=== PATIENT | female | born 1950 | race Caucasian/White ===

== ENCOUNTER 2018-06-26 09:43 | Outpatient (CLI) | payer BC, MEDICARE, OTHER ==
[2018-06-26 11:01] LABS: #Eosinphils 0.1 thou/uL (0.0-0.7); #Lymphocytes 3.3 thou/uL (1.20-3.40); #Monocytes 0.5 thou/uL (0.11-0.59); #Neutrophils 4.8 thou/uL (1.40-6.50); %Basophils 0.3 % (0.0-1.0); %Eosinophils 1.3 % (0.0-10.0); %Lymphocytes 37.7 % (21.0-51.0); %Monocytes 5.3 % (0.0-10.0); %Neutrophils 55.4 % (42.0-75.0); Hemoglobin 13.8 g/dL (12.0-16.0); Mean Corpuscular HGB CONC 34.7 g/dL (32.0-36.0); Mean Corpuscular Hemoglobin 30.8 pg (27.0-31.0); Mean Corpuscular Volume 88.6 fL (78.0-98.0); Mean Platelet Volume 7.1 fL (7.4-10.4); Platelet Count 218 thou/uL (130-400); RBC Distribution Width 12.9 % (11.5-14.5); Red Blood Cell (RBC) Count 4.48 mill/uL (4.20-5.40); White Blood Cell (WBC) Count 8.7 thou/uL (4.8-10.8)
[2018-06-26 11:08] LABS: Hemoglobin A1c 9.2 % (4.0-6.0)
[2018-06-26 11:34] LABS: Anion Gap 15 mmol/L (10-20); BUN (Urea Nitrogen) 11 mg/dL (9.8-20.1); Calc. Creatinine Clearance 0 mL/min (70-130); Calcium 10.2 mg/dL (7.8-10.44); Carbon Dioxide 24 mmol/L (23-31); Chloride 103 mmol/L (98-107); Estimated GFR-MDRD 66; Glucose 150 mg/dL (80-115); Potassium 4.2 mmol/L (3.5-5.1); Sodium 138 mmol/L (136-145)
== END 2018-06-26 09:44 | disposition home or self-care (01) ==
LOC: LABBT 09:43
PROVIDERS: ATTEND Surgery
DX: Z01.818 Encounter for other preprocedural examination (principal); C18.9 Malignant neoplasm of colon, unspecified; K63.89 Other specified diseases of intestine
CPT/HCPCS: 80048; 83036; 85025; 93005; 93010

== ENCOUNTER 2018-06-26 10:15 | Inpatient (IN) | payer BC, MEDICARE, OTHER ==
[2018-06-26 09:56] VITALS: BMI 31.0
[2018-06-30] MEDS ORDERED: Midazolam HCl 2 mg/2 ml Vial ONE (09:23)
[2018-06-30] MEDS ORDERED: Fentanyl 100 MCG/2 ML VIAL ONE ×5 (09:23→18:44)
[2018-06-30] MEDS ORDERED: cefOXitin 2 GM VIAL ONE ×2 (09:42→14:18)
[2018-06-30] MEDS ORDERED: Sodium Chloride 0.9% 100 ML ONE (09:42)
[2018-06-30] MEDS ORDERED: Lidocaine 1% (PF) 30 ML VIAL ONE (09:53)
[2018-06-30] MEDS ORDERED: Bupivacaine/Epinephrine 0.25% 30 ML VIAL ONE (09:59)
[2018-06-30] MEDS ORDERED: Famotidine/PF 20 mg/2ml Vial ONE (10:01)
[2018-06-30] MEDS ORDERED: Albumin 5% 0 ML ONE (10:01)
[2018-06-30] MEDS ORDERED: HYDROmorphone 2 MG/ML VIAL ONE (10:01)
[2018-06-30] MEDS ORDERED: Fentanyl 250 MCG/5 ML VIAL ONE (10:01)
[2018-06-30] MEDS ORDERED: Phenylephrine HCL 10 MG/ML VIAL ONE (12:23)
[2018-06-30] MEDS ORDERED: Bupivacaine HCl 0.5%/Epinephrine 1:200,000/PF 30 ml Vial ONE (12:59)
[2018-06-30] MEDS ORDERED: PHENYLEPHRINE-NS 100 MCG/ML 10 ML SYRINGE ONE (13:29)
[2018-06-30] MEDS ORDERED: Ketorolac Tromethamine 30 MG/ML VIAL ONE (13:29)
[2018-06-30] MEDS ORDERED: Dexamethasone 20 MG/5 ML VIAL ONE (13:29)
[2018-06-30] MEDS ORDERED: Glycopyrrolate 0.2 MG/ML 5 ML SYRINGE ONE (13:29)
[2018-06-30] MEDS ORDERED: Lidocaine 1% PF 5 ML VIAL ONE (13:29)
[2018-06-30] MEDS ORDERED: PROPOFOL 200 MG/20 ML VIAL ONE (13:29)
[2018-06-30] MEDS ORDERED: Ondansetron HCl/PF 4 MG/2 ML Vial ONE (13:29)
[2018-06-30] MEDS ORDERED: Promethazine HCl 25 MG/ML VIAL SLOW IVP PRN (14:14)
[2018-06-30] MEDS ORDERED: Ondansetron HCl/PF 4 MG/2 ML Vial IVP PRN ×2 (14:14→16:55)
[2018-06-30] MEDS ORDERED: Meperidine HCl/PF 25 MG/ML VIAL SLOW IVP PRN (14:14)
[2018-06-30] MEDS ORDERED: Promethazine HCl 25 MG/ML VIAL IM PRN ×2 (14:14→16:55)
[2018-06-30] MEDS ORDERED: Fentanyl 100 MCG/2 ML VIAL SLOW IVP PRN ×2 (16:55)
[2018-06-30] MEDS ORDERED: hydrALAZINE 20 MG/ML VIAL SLOW IVP PRN (16:55)
[2018-06-30] MEDS ORDERED: Acetaminophen 1,000 MG in Premix Bag 1 BAG IVPB SCH (18:00)
[2018-06-30] MEDS: Sodium Chloride 0.9% 1,000 ML IV SCH (19:25)
[2018-06-30] MEDS: Enoxaparin Sodium 40 MG/0.4 ML SYRINGE SC SCH (21:09)
[2018-06-30] MEDS: Famotidine/PF 20 mg/2ml Vial SLOW IVP SCH (21:09)
[2018-06-30] MEDS: Famotidine 20 MG TAB PO SCH (21:09)
[2018-06-30] MEDS: Acetaminophen 1,000 MG in Premix Bag 1 BAG IVPB SCH (21:09)
[2018-06-30] MEDS: cefOXitin 2 GM in Sodium Chloride 0.9% 100 ML IVPB SCH (21:50)
[2018-06-30] MEDS: Insulin Regular 300 UNITS/3 ML VIAL SC PRN (21:50)
--- NOTE | 2018-06-30 22:32 | OP ---
DATE OF PROCEDURE: 06/30/2018 PREOPERATIVE DIAGNOSES: 1. Sigmoid adenocarcinoma. 2. Unresectable polyp, ascending colon and hepatic flexure. POSTOPERATIVE DIAGNOSES: 1. Sigmoid adenocarcinoma. 2. Unresectable polyp, ascending colon and hepatic flexure. PROCEDURE: Open subtotal colectomy with ileal rectosigmoid junction anastomosis. SURGEON: Nilesh Tran M.D. ANESTHESIA: General. ESTIMATED BLOOD LOSS: 100 mL COMPLICATIONS: None. FINDINGS: The distal marked lesion and known adenocarcinoma was up in the mid sigmoid. The second l esion that was an unresectable benign polyp was at the hepatic flexure. Due the patient's anatomy, a double anastomosis was not performed. TECHNIQUE: The patient underwent mechanical and antibiotic bowel prep in the morning of surgery, but she had tap blocks, taken to the operating room and placed supine on the table. After general anest hetic was obtained, her Collins is placed and her abdomen is prepped and draped in a sterile fashion. She had been placed in lithotomy position. Left subcostal 5-mm Optiview trocar was placed on High-fl ow pneumoperitoneum was obtained. Right lower quadrant 5-mm port and 12-mm port placed under direct visualization. The patient was placed in Trendelenburg position. Her omentum was stuck down into th e pelvis with dense adhesions and her small bowel was not able to be brought out of the pelvis to exp ose the sigmoid colon mesentery, so a midline incision was made and a Bookwalter placed and the dense adhesions in the pelvis were taken down using cautery and LigaSure. The left ureter was found and e xcluded from the dissection. The inferior mesenteric artery was taken near its base. The mesentery was mobilized using LigaSure all the way to the distal sigmoid colon. At this location, GI 75 staple r was fired across the colon. The blue dyed area was much more proximal to this. The left colon was mobilized along the white line of Toldt. Hepatic flexure was mobilized in the usual fashion. The r ight colon, hepatic flexure was mobilized in the usual fashion as well. The lesion in the ascending colon turned out to be at just past the hepatic flexure. The patient had significant tortuosity of h er ascending colon and of her sigmoid colon, but a fairly short transverse colon. Because of this an d the likelihood of needing her distal transverse colon to be down at the anastomosis, decision was m eric to perform a subtotal colectomy, ileocolic vessels were taken low using Velma clamp and silk ties . The middle colic vessels taken in the same. The duodenum was excluded from the dissection. JOVON-7 5 stapler required fired across the terminal ileum. Small bowel mesentery was taken down to the alre jax divided mesentery. The specimen was opened to reveal what looked like an area of polypectomy and sent to pathology for final diagnosis. Small bowel was able to be laid down in the pelvis over the rectosigmoid junction in an antimesenteric fashion. Enterotomy was made on the end of each, and an E ndo-JOVON 75 stapler was used to form the anastomosis. The common enterotomy was closed in two layers using Vicryl suture. No evidence of ischemia to the staple lines. The abdomen is irrigated using wa rm sterile solution. There was no bleeding. The surgeon and assistants all changed gloves. Midline fascia closed using #1 PDS from the top and the bottom and tied in the middle. Subcutaneous tissues were irrigated copiously using warm sterile solution. Midline incision using 3-0 Vicryl, 4-0 Monocr yl, and Dermabond. The other incisions are closed using 4-0 Monocryl and Dermabond. The patient en route to recovery in stable condition. All instrument counts, needle counts, lap counts are correct.
[2018-07-01] MEDS: Ketorolac Tromethamine 30 MG/ML VIAL IVP PRN ×3 (00:55→20:59)
[2018-07-01] MEDS: Acetaminophen 1,000 MG in Premix Bag 1 BAG IVPB SCH ×3 (02:59→14:31)
[2018-07-01] MEDS: cefOXitin 2 GM in Sodium Chloride 0.9% 100 ML IVPB SCH (05:40)
[2018-07-01] MEDS: Levothyroxine Sodium 125 MCG TAB PO SCH (05:40)
[2018-07-01] MEDS: Insulin Regular 300 UNITS/3 ML VIAL SC PRN ×4 (05:50→21:04)
[2018-07-01 05:56] LABS: Anion Gap 13 mmol/L (10-20); BUN (Urea Nitrogen) 10 mg/dL (9.8-20.1); Calc. Creatinine Clearance 93 mL/min (70-130); Calcium 8.1 mg/dL (7.8-10.44); Carbon Dioxide 22 mmol/L (23-31); Chloride 107 mmol/L (98-107); Estimated GFR-MDRD 69; Glucose 204 mg/dL (80-115); Potassium 3.8 mmol/L (3.5-5.1); Sodium 138 mmol/L (136-145)
[2018-07-01 06:23] LABS: Hemoglobin 12.8 g/dL (12.0-16.0); Mean Corpuscular HGB CONC 33.8 g/dL (32.0-36.0); Mean Corpuscular Hemoglobin 30.5 pg (27.0-31.0); Mean Corpuscular Volume 90.4 fL (78.0-98.0); Mean Platelet Volume 7.9 fL (7.4-10.4); Platelet Count 208 thou/uL (130-400); RBC Distribution Width 13.1 % (11.5-14.5); Red Blood Cell (RBC) Count 4.19 mill/uL (4.20-5.40); White Blood Cell (WBC) Count 10.4 thou/uL (4.8-10.8)
[2018-07-01 06:46] LABS: Band 50 % (5-11); Lymphocytes 12 % (21-51); MDiff Complete? YES; Monocytes 2 % (0-10); Neutrophil 36 % (42-75); Reflex for Review?? YES
[2018-07-01] MEDS: Sodium Chloride 0.9% 1,000 ML IV SCH (07:50)
[2018-07-01] MEDS ORDERED: Sodium Chloride 0.9% 1,000 ML IV SCH (07:55)
--- NOTE | 2018-07-01 07:56 | PDOC.GSPN ---
Surgery Progress Note: Subj - Subjective Narrative: No nausea, pain controlled Surgery Progress Note: Obj - Vital signs Vital signs: Vital Signs - Most Recent Temp Pulse Resp BP Pulse Ox 98.5 F 88 16 110/67 95 07/01/18 07:21 07/01/18 07:21 07/01/18 07:21 07/01/18 04:00 07/01/18 07:21 - Physical Exam General: no distress Cardiovascular: regular rate and rhythm Respiratory: clear to auscultation Abdomen: soft, non tender, nondistended Surgery Progress Note: Results - Labs Result Diagrams: 07/01/18 04:46 07/01/18 04:46 Lab results: Laboratory Results - last 24 hr 06/30/18 07/01/18 07/01/18 21:37 04:46 04:46 WBC 10.4 RBC 4.19 L Hgb 12.8 Hct 37.8 MCV 90.4 MCH 30.5 MCHC 33.8 RDW 13.1 Plt Count 208 MPV 7.9 Neutrophils % (Manual) 36 L Band Neuts % (Manual) 50 H Lymphocytes % (Manual) 12 L Monocytes % (Manual) 2 Neutrophils # Not Reportable Lymphocytes # Not Reportable Sodium 138 Potassium 3.8 Chloride 107 Carbon Dioxide 22 L Anion Gap 13 BUN 10 Creatinine 0.83 Estimated GFR (MDRD) 69 Glucose 204 H POC Glucose 260 H Calcium 8.1 07/01/18 05:49 WBC RBC Hgb Hct MCV MCH MCHC RDW Plt Count MPV Neutrophils % (Manual) Band Neuts % (Manual) Lymphocytes % (Manual) Monocytes % (Manual) Neutrophils # Lymphocytes # Sodium Potassium Chloride Carbon Dioxide Anion Gap BUN Creatinine Estimated GFR (MDRD) Glucose POC Glucose 195 H Calcium Surgery Progress Note: A/P - Problem (1) Colonic mass Current Visit: Yes Code(s): K63.9 - DISEASE OF INTESTINE, UNSPECIFIED Status : Acute - Plan Plan: POD 1 -full liquids if no nausea at dinner -ambulate
[2018-07-01] MEDS: Famotidine/PF 20 mg/2ml Vial SLOW IVP SCH ×2 (08:22→21:00)
[2018-07-01] MEDS: Famotidine 20 MG TAB PO SCH ×2 (08:22→20:59)
[2018-07-01] MEDS: Enoxaparin Sodium 40 MG/0.4 ML SYRINGE SC SCH (20:59)
[2018-07-02] MEDS ORDERED: Acetaminophen 325 MG TAB PO SCH (04:15)
[2018-07-02] MEDS: Levothyroxine Sodium 125 MCG TAB PO SCH (05:54)
[2018-07-02] MEDS: Insulin Regular 300 UNITS/3 ML VIAL SC PRN (06:02)
[2018-07-02] MEDS: Famotidine/PF 20 mg/2ml Vial SLOW IVP SCH (08:06)
[2018-07-02] MEDS: Famotidine 20 MG TAB PO SCH (08:10)
[2018-07-02] MEDS ORDERED: HYDROcodone/Acetaminophen 10/325 mg Tablet PO PRN ×2 (09:09)
[2018-07-02 09:42] LABS: #Lymphocytes 1.9 thou/uL (1.20-3.40); #Monocytes 0.3 thou/uL (0.11-0.59); %Basophils 0.2 % (0.0-1.0); %Eosinophils 0.2 % (0.0-10.0); %Lymphocytes 17.1 % (21.0-51.0); %Neutrophils 79.5 % (42.0-75.0); Hemoglobin 11.4 g/dL (12.0-16.0); Mean Corpuscular HGB CONC 34.4 g/dL (32.0-36.0); Mean Corpuscular Hemoglobin 31.2 pg (27.0-31.0); Mean Corpuscular Volume 90.6 fL (78.0-98.0); Mean Platelet Volume 7.3 fL (7.4-10.4); Platelet Count 168 thou/uL (130-400); RBC Distribution Width 13.2 % (11.5-14.5); Red Blood Cell (RBC) Count 3.66 mill/uL (4.20-5.40); White Blood Cell (WBC) Count 11.3 thou/uL (4.8-10.8)
[2018-07-02 10:06] LABS: Anion Gap 12 mmol/L (10-20); BUN (Urea Nitrogen) 10 mg/dL (9.8-20.1); Calc. Creatinine Clearance 102 mL/min (70-130); Calcium 8.5 mg/dL (7.8-10.44); Carbon Dioxide 22 mmol/L (23-31); Chloride 106 mmol/L (98-107); Estimated GFR-MDRD 76; Glucose 125 mg/dL (80-115); Potassium 3.4 mmol/L (3.5-5.1); Sodium 137 mmol/L (136-145)
[2018-07-02 11:41] VITALS: BP 139/78; TEMP 99.6
== END 2018-07-02 12:44 | disposition home or self-care (01) | DRG 331 ==
LOC: SURG A 06-30 09:06
PROVIDERS: ADMIT Surgery; ATTEND Surgery
PROC: 0DBN0ZZ Excision of Sigmoid Colon, Open Approach (ICD-10-PCS; principal; 2018-06-30)
DX: C18.9 Malignant neoplasm of colon, unspecified (principal); K63.5 Polyp of colon; C18.7 Malignant neoplasm of sigmoid colon
CPT/HCPCS: 36415; 36416; 80048; 85025; 85060; 88309; J0131; J0670; J0694; J1100; J1170; J1650; J1815; J1885; J2001; J2250; J2370; J2405; J2704; J3010; J7050; P9045; S0028